=== PATIENT | male | born 1950 ===

== ENCOUNTER 2020-08-27 06:40 | Day surgery (SDC) | payer MEDICARE, BC ==
[~2020-08-27 06:40] MED LIST: Lactated Ringers 1,000 ML IV SCH
[2020-08-27] MEDS ORDERED: Propofol 200 MG/20 ML SDV ONE (06:56)
[2020-08-27] MEDS ORDERED: Midazolam 1 MG/ML 2 ML SDV ONE (06:56)
[2020-08-27] MEDS ORDERED: fentaNYL 100 MCG/2 ML SDV ONE (06:56)
[2020-08-27] MEDS ORDERED: Ondansetron 4 MG/2 ML SDV ONE (06:57)
[2020-08-27] MEDS ORDERED: Dexamethasone 4 MG/ML 5 ML MDV ONE (06:57)
[2020-08-27] MEDS ORDERED: Lidocaine 2% 5 ML SDV ONE (06:57)
[2020-08-27] MEDS ORDERED: Rocuronium Bromide 50 MG/5 ML Syringe ONE (07:03)
[2020-08-27] MEDS ORDERED: Succinylcholine/Sod PF 100 MG/5 ML SYRINGE IV ONE (07:03)
--- NOTE | 2020-08-27 07:26 | PCM.PREANE ---
Preanesthetic Assessment - Anesthesia/Transfusion/Family Hx Anesthesia History: Prior Anesthesia Without Reaction Family History of Anesthesia Reaction: No Transfusion History: No Prior Transfusion(s) - Review of Systems General: No Symptoms Pulmonary: No Symptoms Cardiovascular: No Symptoms Gastrointestinal: No Symptoms Neurological: No Symptoms Other: Reports: None - Physical Assessment NPO Status Date: 08/26/20 Vital Signs: Last Vital Signs Temp 97.3 F 08/27/20 07:00 Pulse 58 L 08/27/20 07:00 Resp 16 08/27/20 07:00 BP 122/71 08/27/20 07:00 Pulse Ox 95 08/27/20 07:00 Height: 6 ft Weight: 81.193 kg ASA Class: 3 Mental Status: Alert & Oriented x3 Airway Class: Mallampati = 2 Dentition: Reports: Normal Dentition ROM/Head Extension: Full Lungs: Clear to Auscultation, Normal Respiratory Effort Cardiovascular: Regular Rate, Regular Rhythm - Allergies Allergies/Adverse Reactions: Allergies Allergy/AdvReac Type Severity Reaction Status Date / Time No Known Allergies Allergy Verified 11/10/14 15:56 - Blood Blood Available: No - Anesthesia Plan Pre-Op Medication Ordered: None - Acknowledgements Anesthesia Type Planned: General Anesthesia Pt an Appropriate Candidate for the Planned Anesthesia: Yes Alternatives and Risks of Anesthesia Discussed w Pt/Guardian: Yes Pt/Guardian Understands and Agrees with Anesthesia Plan: Yes Additional Comments: PMH: hx of PE, on elliquis- stopped 4 d ago, dementia, chr pain, normal pressure hydrocephalus- s/p vp analytics shunt PLAN: ga/lma PreAnesthesia Questionnaire HEENT History: Reports: Allergic Rhinitis, Other (See Below) Other HEENT History: wears glasses Cardiovascular History: Reports: None Respiratory History: Reports: PE, Other (See Below) Other Respiratory History: hx PE in April of 2019, on Eliquis Gastrointestinal History: Reports: None Genitourinary History: Reports: Prostate Disorder Other Genitourinary History: hx prostate cancer, presently has kidney stone-left Musculoskeletal History: Reports: Fracture Other Musculoskeletal History: fx arm as a child Neurological History: Reports: Other (See Below) Other Neuro History: dementia, hx hydrocephalus-shunt placed Psychiatric History: Reports: Dementia Endocrine/Metabolic History: Reports: None Hematologic History: Reports: Anticoagulation Therapy Immunologic History: Reports: None Oncologic (Cancer) History: Reports: Basal Cell Carcinoma, Prostate Dermatologic History: Reports: None - Infectious Disease History Infectious Disease History: Reports: None - Past Surgical History Head Surgeries/Procedures: Reports: Shunt HEENT Surgical History: Reports: Cataract Surgery, Tonsillectomy Cardiovascular Surgical History: Reports: None Respiratory Surgical History: Reports: None GI Surgical History: Reports: None Male Surgical History: Reports: Prostatectomy, Other (See Below) Other Male Surgeries/Procedures: needle bx of prostate Endocrine Surgical History: Reports: None Neurological Surgical History: Reports: Intracranial, Lumbar Spine Other Neurological Surgeries/Procedures: hx of back surgery x3, brain shunt placed in April,, in [place], hx hydrocephalus Musculoskeletal Surgical History: Reports: Arthroscopic Knee Other Musculoskeletal Surgeries/Procedures:: ACL repair Oncologic Surgical History: Reports: None Dermatological Surgical History: Reports: Skin Biopsy - SUBSTANCE USE Tobacco Use Within Last Twelve Months: Other (See Below) Recreational Drug Use History: No - HOME MEDS Home Medications: Home Meds Apixaban [Eliquis] 5 mg PO DAILY 08/25/20 [History] Cetirizine [ZyrTEC] 10 mg PO DAILY 08/25/20 [History] Memantine HCl/Donepezil HCl [Namzaric 28 mg-10 mg Capsule] 1 tab PO DAILY 08/25/20 [History] Simvastatin 40 mg PO DAILY 08/25/20 [History] - CURRENT (IN HOUSE) MEDS Current Meds: Current Medications Lactated Ringer's (Ringers, Lactated) 1,000 mls @ 100 mls/hr IV ASDIRECTED [facility] Last Admin: 08/27/20 07:23 Dose: 100 mls/hr Documented by: Discontinued Medications Dexamethasone (Dexamethasone) Confirm Administered Dose 20 mg .ROUTE .STK-MED ONE Stop: 08/27/20 06:58 Fentanyl (Sublimaze) Confirm Administered Dose 100 mcg .ROUTE .STK-MED ONE Stop: 08/27/20 06:57 Lidocaine (Xylocaine-Mpf 2%) Confirm Administered Dose 5 ml .ROUTE .STK-MED ONE Stop: 08/27/20 06:58 Midazolam HCl (Versed 1 Mg/Ml) Confirm Administered Dose 2 mg .ROUTE .STK-MED ONE Stop: 08/27/20 06:57 Ondansetron HCl (Zofran) Confirm Administered Dose 4 mg .ROUTE .STK-MED ONE Stop: 08/27/20 06:58 Propofol (Diprivan 20 Ml) Confirm Administered Dose 200 mg .ROUTE .STK-MED ONE Stop: 08/27/20 06:57 Rocuronium Manzanita (Rocuronium Manzanita) Confirm Administered Dose 50 mg .ROUTE .STK-MED ONE Stop: 08/27/20 07:04
[2020-08-27] MEDS ORDERED: ePHEDrine 50 MG/ML SDV ONE (08:24)
[2020-08-27] MEDS ORDERED: Glycopyrrolate 0.2 MG/ML SDV ONE ×2 (08:26→08:29)
[2020-08-27] MEDS ORDERED: Phenylephrine 1% 10 MG/ML SDV ONE (08:35)
[2020-08-27] MEDS ORDERED: Cetirizine 10 MG Tab PO SCH (09:00)
[2020-08-27] MEDS ORDERED: Simvastatin 40 MG Tab PO SCH (09:00)
[2020-08-27] MEDS ORDERED: Non-Formulary Medication 1 Each (Memantine Hcl/Donepezil Hcl [Namzaric 28 Mg-10 Mg Capsule PO SCH (09:00)
[2020-08-27] MEDS ORDERED: Apixaban 5 MG Tab PO SCH (09:00)
--- NOTE | 2020-08-27 10:48 | PCM.POSTAN ---
POST ANESTHESIA ASSESSMENT - MENTAL STATUS Mental Status: Alert, Oriented - VITAL SIGNS Vital Signs: Last Vital Signs Temp 97.2 F 08/27/20 09:35 Pulse 83 08/27/20 09:35 Resp 16 08/27/20 09:35 BP 111/63 08/27/20 09:35 Pulse Ox 96 08/27/20 09:35 - RESPIRATORY Respiratory Status: Respiratory Rate WNL, Airway Patent, O2 Saturation Stable - CARDIOVASCULAR CV Status: Pulse Rate WNL, Blood Pressure Stable - GASTROINTESTINAL GI Status: No Symptoms - POST OP HYDRATION Hydration Status: Adequate & Stable
--- NOTE | 2020-08-27 10:49 | PCM48HPAN ---
Post Anesthesia Note - EVALUATION WITHIN 48HRS OF ANESTHETIC Vital Signs in Normal Range: Yes Patient Participated in Evaluation: Yes Respiratory Function Stable: Yes Airway Patent: Yes Cardiovascular Function Stable: Yes Hydration Status Stable: Yes Pain Control Satisfactory: Yes Nausea and Vomiting Control Satisfactory: Yes Mental Status Recovered: Yes Vital Signs: Last Vital Signs Temp 97.2 F 08/27/20 09:35 Pulse 83 08/27/20 09:35 Resp 16 08/27/20 09:35 BP 111/63 08/27/20 09:35 Pulse Ox 96 08/27/20 09:35
--- NOTE | 2020-08-27 12:37 | OR ---
SURGEON: Sisi Suero M.D. DATE OF PROCEDURE: 08/27/2020 PREOPERATIVE DIAGNOSIS: Left mid ureteral stone. POSTOPERATIVE DIAGNOSIS: Left renal stone. OPERATION PERFORMED: Extracorporeal shockwave lithotripsy. DESCRIPTION OF PROCEDURE: The patient was given general anesthesia. He was on the lithotripsy table. The position of the patient was adjusted so the stone could be treated. The stone by now was actually in the left kidney. It had migrated back up from last week when he had his KUB and his CT scan. Anyway, the stone was treated to 2000 shocks that resulted in good and adequate disintegration of the stone. The patient tolerated the procedure well and was moved to the recovery room in good condition. LOPEZ / JELENA /[id number]
== END 2020-08-27 10:40 | disposition home or self-care (01) ==
LOC: MW.SDS 06:40
PROVIDERS: ATTEND Urology
DX: N20.0 Calculus of kidney (principal); Z85.46 Personal history of malignant neoplasm of prostate; Z79.01 Long term (current) use of anticoagulants; Z79.899 Other long term (current) drug therapy; Z98.890 Other specified postprocedural states; Z87.891 Personal history of nicotine dependence
CPT/HCPCS: 50590; J0330; J1100; J2001; J2250; J2370; J2405; J2704; J3010; J3490; J7120